=== PATIENT | female | born 1945 | race American Indian/Alaskan Native ===

== ENCOUNTER 2024-10-20 19:48 | Emergency (ER) | payer MEDICARE, MEDICAID, SELFPAY ==
[2024-10-20 19:53] VITALS: PULSE 97; O2SAT 97
[2024-10-20 19:54] VITALS: BP 134/77; PULSE 95; RESP 16; TEMP 36.7; O2SAT 97; BMI 25.3
--- NOTE | 2024-10-20 19:55 | PD.EDFALL ---
ED Fall Injury RME/HPI General Chief Complaint: Fall Stated Complaint: FALL Time Seen by Provider: 10/20/24 19:56 Arrival date/time: 10/20/24 19:48 RME / HPI RME / HPI Narrative: Dr. Dupont?s Main ED Evaluation: 79yo female with a history of DM, HTN, HLD BIBA from home presents to the ED for a chief complaint of a ground-level fall. Patient states she was washing metal dish plates when she stepped too far to the right and into a hole, reporting she fell forward and hit her face on the ground. She denies any loss of consciousness. Patient denies being on blood thinners. Patient denies any neck pain, numbness, tingling, chest pain, abdominal pain, back pain, extremity pain, blurry vision or any other associated symptoms. Related Data Home Medications ?Medication ?Instructions ?Recorded ?Confirmed lisinopril 2.5 mg tablet 2.5 mg PO QDAY 04/24/19 06/26/22 aspirin 81 mg tablet,delayed 81 mg PO QDAY 08/01/21 06/26/22 release insulin degludec 200 unit/mL (3 20 unit subcut QDAY 08/01/21 06/26/22 mL) subcutaneous pen (Tresiba FlexTouch U-200 insulin) atorvastatin 10 mg tablet 10 mg PO QDAY 06/26/22 06/26/22 hydroxyzine HCl 25 mg tablet 25 mg PO BIDPRN PRN Insomnia 06/26/22 06/26/22 travoprost 0.004 % eye drops 1 drp ophthalmic (eye) QDAY 06/26/22 06/26/22 Previous Rx's ?Medication ?Instructions ?Recorded ibuprofen 600 mg tablet 600 mg PO Q8H PRN pain #30 tabs 08/01/21 acetaminophen 500 mg capsule 1,000 mg (2 x 500 mg) PO Q6H PRN 10/20/24 fever or pain #30 caps Allergies Allergy/AdvReac Type Severity Reaction Status Date / Time oxycodone Allergy Severe HIVE Verified 06/26/22 08:12 Review of Systems Review of Systems Systems Reviewed: All systems reviewed, normal except as documented Past Medical History Past Medical History NEUROLOGIC: Negative Neurological Disorders or Seizures CARDIAC: Positive Cardiac Disorders, Peripheral Vascular Disease, Hypercholesterolemia and Hypertension; Negative Congestive Heart Failure RESPIRATORY: Negative Chronic Obstructive Pulmonary Disease (COPD) GASTROINTESTINAL: Negative Gastrointestinal Disorders GENITOURINARY: Negative Genitourinary Disorders or Renal Disease REPRODUCTIVE: Positive Breast Cancer (Left) MUSCULOSKELETAL: Positive Musculoskeletal Disorders and Arthritis ENT: Positive Cataracts (Bilateral) ENDOCRINE: Positive Endocrine Disorders and Diabetes Mellitus Type 2; Negative Diabetes Mellitus Type 1 HEMATOLOGIC: Negative Anemia or Clotting Problems OTHER HISTORY: Positive Cancer and Breast Cancer (Left); Negative Hospitalization, Falls, Blood Transfusions, Anesthesia Reactions, Chemotherapy or Radiation Therapy Surgical History SURGICAL: Positive Vascular Surgery (Left lower extremity), Mastectomy (Left), Hysterectomy and Tubal Ligation Social History SMOKING STATUS: Never smoker SUBSTANCE USE: does not use 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 HEENT: Normocephalic, large hematoma to the left side of the forehead without any open wounds; pupils equal, round, reactive to light; EOMI; right amblyopia; mucous membranes pink, moist; oropharynx clear NECK: Supple LUNGS: CTABL; no wheezes, no rales, no rhonchi HEART: Regular rate, regular rhythm; normal S1, S2; no murmurs ABDOMEN: non distended; normal BS; soft, no tenderness, no guarding, no rebound; no masses, no organomegaly, no hernia BACK: no CVA tenderness EXTREMITIES: atraumatic; no edema NEUROLOGIC: awake; alert and oriented x4; cranial nerves II-XII grossly intact; no focal sensory or motor deficits PSYCHIATRIC: appropriate mood and affect SKIN: warm, dry, normal color; no rashes Course Quality Measures none Orders Category Date Time Status Miscellaneous Nursing Order NOW Care 10/20/24 20:[address] cervical spine wo con Stat Exams 10/20/24 20:[address] facial bones wo con Stat Exams 10/20/24 20:[address] head/brain wo con Stat Exams 10/20/24 20:10 Completed Acetaminophen Tab [Tylenol ES Tab] Med 10/20/24 20:10 Discontinued 1,000 mg PO X1 ONE Vital Signs Vital signs: Vital Signs Temperature 98.1 F 10/20/24 19:54 Pulse Rate 95 10/20/24 19:54 Respiratory Rate 16 10/20/24 19:54 Blood Pressure 134/77 H 10/20/24 19:54 Pulse Oximetry (%) 97 10/20/24 19:54 Oxygen Delivery Method Room Air 10/20/24 19:54 Fall MDM Narrative MDM Narrative:: Scribe Attestation: 10/20/24 - I, Aimee Mccullough am scribing for and in the presence of Dr. Dupont. Hard C-Collar was placed. 2133: CTs are unremarkable. C-collar cleared. Patient is stable to be discharged home. Patient data External records reviewed:: [facility] previous records (Per chart review, patient was seen here on 12/14/21 for chest pain.) Clinical information provided by:: patient Social determinants that could affect healthcare access:: none Patient has the following chronic illnesses:: DM, HTN, HLD How is presenting disease/condition affected by chronic disease/condition?: uneffected by Evaluation data The following diagnostics were reviewed and interpreted by me:: radiology exam(s) Lab and/or radiology exams considered but not ordered:: none Interpretation Summary: [facility] Signed Patient: TARUN CHAVEZ. Record#: [id number] Birthdate: 1945 Age/Sex: 79 / F Location: [facility] Attending Dr: Ordering Physician: Sergio Dupont MD Date of Service: 10/20/24 Procedure(s): CT head/brain wo con Accession Number(s): [id number] cc: Herbert Giles MD; ABE SALDAÑA; Sergio Dupont MD~ Examination: CT brain head without contrast. 2-D sagittal coronal reconstructions Date and time of exam:October 20, 2024 2049 hours INDICATIONS: Patient fell today with injury to the head, head pain CTDI: vol (mGy):47.6 DLP: (mGycm):977 Technique: Multiple CT axial sections of the brain have been obtained, 5 mm slice thickness. Contrast has not been administered. 2-D sagittal, coronal reconstructions have been obtained Low dose protocols were performed. One or more of the following dose reduction techniques were used; automated exposure control, adjustment of the mA and/or KV according to patient size, use of iterative reconstruction technique. Findings: No significant ventricular enlargement. Intra-axial or extra-axial hemorrhage density is not seen. No mass effect or midline shift Basal cisterns are not remarkable. Fourth ventricle is midline. Cranial vault intact. Left forehead soft tissue scalp swelling/hematoma Impression: Negative for acute hemorrhage, mass effect or midline shift Dictated By: Herbert Giles MD Signed By: <Electronically signed by Herbert Giles MD in OV> 10/20/242119 [facility] Signed Patient: TARUN CHAVEZ [facility]. Record#: [id number] Birthdate: 1945 Age/Sex: 79 / F Location: [facility] Attending Dr: Ordering Physician: Sergio Dupont MD Date of Service: 10/20/24 Procedure(s): CT facial bones wo con Accession Number(s): [id number] cc: Herbert Giles MD; ABE SALDAÑA; Sergio Dupont MD~ Examination: CT maxillofacial, without intravenous contrast. 2-D sagittal reconstructions. 3-D reconstructions. Date and time of exam:October 20, 2024, 2048 hours INDICATIONS: Patient fell today with injury to the face, facial pain CTDI: vol (mGy):22.1 DLP: (mGycm):381 Technique: Multiple axial images of maxillofacial region, 3.0 mm slice thickness. 2-D sagittal and coronal reconstructions. 3-D reconstructions. Low dose protocols were performed. One or more of the following dose reduction techniques were used; automated exposure control, adjustment of the mA and/or KV according to patient size, use of iterative reconstruction technique. Findings: Soft tissue swelling/hematoma left forehead Frontal bone intact Orbital rims intact No nasal bone fracture. No depression zygomatic arches. Pterygoid plates maxilla and mandible are intact. IMPRESSION: No acute facial fracture Dictated By: Herbert Giles MD Signed By: <Electronically signed by Herbert Giles MD in OV> 10/20/242117 [facility] Signed Patient: TARUN CHAVEZ [facility]. Record#: [id number] Birthdate: 1945 Age/Sex: 79 / F Location: [facility] Attending Dr: Ordering Physician: Sergio Dupont MD Date of Service: 10/20/24 Procedure(s): CT cervical spine wo con Accession Number(s): [id number] cc: Herbert Giles MD; ABE SALDAÑA; Sergio Dupont MD~ Examination: CT cervical spine without contrast 2-D sagittal reconstructions 2-D coronal reconstructions 3-D reconstructions. Exam date and time:October 20, 2024, 2048 hours INDICATIONS: Patient fell today with injury to the neck, neck pain CTDI:vol (mGy) 13.7 DLP: (mGycm) 290 Technique: Multiple 2 mm axial sections of the cervical spine have been obtained. The coronal and sagittal reconstructions have been obtained. 3-D reconstructions have been obtained. Low dose protocols were performed. One or more of the following dose reduction techniques were used; automated exposure control, adjustment of the mA and/or KV according to patient size, use of iterative reconstruction technique. Findings: Axial sections demonstrate intact base of the skull. C1 exhibit satisfactory relationship to the odontoid. No acute cervical vertebral body fracture seen. Alignment posterior spinous processes satisfactory. Impression: No acute cervical fracture. Dictated By: Herbert Giles MD Signed By: <Electronically signed by Herbert Giles MD in OV> 10/20/242122 Medications / Prescriptions Medications or Prescriptions considered but not ordered:: none Medication administrations:: Medication Administration History Discontinued Medications Acetaminophen (Acetaminophen 500 Mg Tablet) 1,000 mg PO X1 ONE Stop: 10/20/24 20:11 Last Admin: 10/20/24 20:21 Dose: 1,000 mg Documented By: CB see above Consultations Consultation(s) initiated? (list below): No Diagnosis Fall Differential Diagnosis: other (skull fracture, facial fracture, ICH, cervical spine fracture) Most likely diagnosis given after review of the tests above:: see clinical impression below Admission Indicated Admission indicated?: not indicated Admission Request Was there a request for admission?: No Disposition Plan Disposition Plan: Discharge Discharge Attestation Discharge Attestation: The patient and all family members were given an opportunity to ask questions and understood the discharge instructions. Discharge instructions specifically effects, indications for sooner follow up or return to the emergency department, and the expected course of current diagnosis. Patient condition: Stable Discharge Plan Plan Patient Disposition: HOME (Self Care) Discharge Disposition comment: Stable for discharge home Patient condition on transfer: Stable Prescriptions/Referrals Prescriptions/Med Rec: New acetaminophen 500 mg capsule 1,000 mg PO Q6H PRN (Reason: fever or pain) Qty: 30 0RF No Action lisinopril 2.5 mg Tablet 2.5 mg PO QDAY aspirin 81 mg tablet,delayed release (DR/EC) 81 mg PO QDAY Patient Comments: TAKE 1 TABLET BY MOUTH EVERY DAY insulin degludec [Tresiba FlexTouch U-200] 200 unit/mL (3 mL) insulin pen 20 unit SUBCUT QDAY Patient Comments: ADMINISTER 30 UNITS UNDER THE SKIN EVERY DAY ibuprofen 600 mg tablet 600 mg PO Q8H PRN (Reason: pain) Qty: 30 0RF atorvastatin 10 mg tablet 10 mg PO QDAY Patient Comments: TAKE 1 TABLET BY MOUTH EVERY DAY travoprost 0.004 % drops 1 drp ophthalmic (eye) QDAY Patient Comments: INSTILL 1 DROP IN RIGHT EYE EVERY NIGHT AT BEDTIME AND IN THE EVENING hydroxyzine HCl 25 mg tablet 25 mg PO BIDPRN PRN (Reason: Insomnia) Patient Comments: TAKE 1 TABLET BY MOUTH TWICE DAILY NEEDED Referrals: Abe Saldaña PA-C [Primary Care Provider] - In 1 week Problem List Clinical Impression: Contusion of face Patient/Caregiver Discharge Instructions Discharge Activity: activity as tolerated Education Materials: ED Facial Contusion, ED Head Injury (Adult) Additional Instructions: Please return to the emergency department if you have any worsening or any further medical problems and we will help you. Otherwise you should follow-up with your primary care doctor within the next several days. I have called in a prescription for extra strength Tylenol at your pharmacy. Please take 2 tabs every 6 hours for pain. You will likely have a black eye tomorrow. This does not mean that you are worsening it just means that the blood from the forehead injury has settled. You should ice the area for the next couple of days at least. Print Language: Slovak Stand Alone Forms: [facility] Info., Patient Portal Info Letter
--- NOTE | 2024-10-20 20:10 | XR_ITS ---
Examination: CT maxillofacial, without intravenous contrast. 2-D sagittal reconstructions. 3-D reconstructions. Date and time of exam:October 20, 2024, 2048 hours INDICATIONS: Patient fell today with injury to the face, facial pain CTDI: vol (mGy):22.1 DLP: (mGycm):381 Technique: Multiple axial images of maxillofacial region, 3.0 mm slice thickness. 2-D sagittal and coronal reconstructions. 3-D reconstructions. Low dose protocols were performed. One or more of the following dose reduction techniques were used; automated exposure control, adjustment of the mA and/or KV according to patient size, use of iterative reconstruction technique. Findings: Soft tissue swelling/hematoma left forehead Frontal bone intact Orbital rims intact No nasal bone fracture. No depression zygomatic arches. Pterygoid plates maxilla and mandible are intact. IMPRESSION: No acute facial fracture
--- NOTE | 2024-10-20 20:10 | XR_ITS ---
Examination: CT brain head without contrast. 2-D sagittal coronal reconstructions Date and time of exam:October 20, 2024 2049 hours INDICATIONS: Patient fell today with injury to the head, head pain CTDI: vol (mGy):47.6 DLP: (mGycm):977 Technique: Multiple CT axial sections of the brain have been obtained, 5 mm slice thickness. Contrast has not been administered. 2-D sagittal, coronal reconstructions have been obtained Low dose protocols were performed. One or more of the following dose reduction techniques were used; automated exposure control, adjustment of the mA and/or KV according to patient size, use of iterative reconstruction technique. Findings: No significant ventricular enlargement. Intra-axial or extra-axial hemorrhage density is not seen. No mass effect or midline shift Basal cisterns are not remarkable. Fourth ventricle is midline. Cranial vault intact. Left forehead soft tissue scalp swelling/hematoma Impression: Negative for acute hemorrhage, mass effect or midline shift
--- NOTE | 2024-10-20 20:10 | XR_ITS ---
Examination: CT cervical spine without contrast 2-D sagittal reconstructions 2-D coronal reconstructions 3-D reconstructions. Exam date and time:October 20, 2024, 2048 hours INDICATIONS: Patient fell today with injury to the neck, neck pain CTDI:vol (mGy) 13.7 DLP: (mGycm) 290 Technique: Multiple 2 mm axial sections of the cervical spine have been obtained. The coronal and sagittal reconstructions have been obtained. 3-D reconstructions have been obtained. Low dose protocols were performed. One or more of the following dose reduction techniques were used; automated exposure control, adjustment of the mA and/or KV according to patient size, use of iterative reconstruction technique. Findings: Axial sections demonstrate intact base of the skull. C1 exhibit satisfactory relationship to the odontoid. No acute cervical vertebral body fracture seen. Alignment posterior spinous processes satisfactory. Impression: No acute cervical fracture.
[2024-10-20] MEDS: ACETAMINOPHEN 500 MG TABLET 1000 MG PO (20:21)
[2024-10-20 21:55] VITALS: BP 138/71; PULSE 81; RESP 19; O2SAT 100
== END 2024-10-20 21:56 | disposition home or self-care (01) ==
PROVIDERS: Emergency Provider Emergency Medicine; PCP Physician Assistant
DX: S00.83XA Contusion of other part of head, initial encounter (principal); W18.30XA Fall on same level, unspecified, initial encounter; E11.9 Type 2 diabetes mellitus without complications; E78.5 Hyperlipidemia, unspecified; I10 Essential (primary) hypertension
CPT/HCPCS: 70450; 70486; 72125; 99284; A9270

== ENCOUNTER 2024-11-01 16:51 | Emergency (ER) | payer MEDICARE, MEDICAID, SELFPAY ==
[2024-11-01 16:53] VITALS: BMI 22.8
[2024-11-01 17:59] VITALS: BP 152/81; PULSE 76; RESP 16; TEMP 36.6; O2SAT 98
--- NOTE | 2024-11-01 18:01 | PD.EDWEAK ---
ED Weakness RME/HPI General Chief complaint: Weakness Stated complaint: I HAVE HIGH SUGAR AND FEEL WEAK Time Seen by Provider: 11/01/24 18:03 Arrival date/time: 11/01/24 16:51 RME / HPI RME / HPI Narrative: 79-year-old female patient came in for evaluation regarding possible elevated blood sugar. Patient told me that he is homeless just recently and now complaining of possible high blood sugar. Has been having generalized body weakness and feels dizzy since this morning. Patient is not taking her diabetes medication for more than a month due to being homeless. Denies any vomiting denies any other abdominal pain denies any chest pain denies any fever denies any cough . Related Data Home Medications ?Medication ?Instructions ?Recorded ?Confirmed lisinopril 2.5 mg tablet 2.5 mg PO QDAY 04/24/19 06/26/22 aspirin 81 mg tablet,delayed 81 mg PO QDAY 08/01/21 06/26/22 release insulin degludec 200 unit/mL (3 20 unit subcut QDAY 08/01/21 06/26/22 mL) subcutaneous pen (Tresiba FlexTouch U-200 insulin) atorvastatin 10 mg tablet 10 mg PO QDAY 06/26/22 06/26/22 hydroxyzine HCl 25 mg tablet 25 mg PO BIDPRN PRN Insomnia 06/26/22 06/26/22 travoprost 0.004 % eye drops 1 drp ophthalmic (eye) QDAY 06/26/22 06/26/22 Previous Rx's ?Medication ?Instructions ?Recorded ibuprofen 600 mg tablet 600 mg PO Q8H PRN pain #30 tabs 08/01/21 acetaminophen 500 mg capsule 1,000 mg (2 x 500 mg) PO Q6H PRN 10/20/24 fever or pain #30 caps cefuroxime axetil 500 mg tablet 500 mg PO BID #14 tabs 11/01/24 Allergies Allergy/AdvReac Type Severity Reaction Status Date / Time oxycodone Allergy Severe HIVE Verified 11/01/24 16:54 Review of Systems Review of Systems Narrative Review of Systems: Review of system reviewed and within normal limits except mentioned in HPI ED Exam Narrative Physical exam: VITAL SIGNS: Reviewed. GENERAL APPEARANCE: Alert and interactive, follows commands, no acute distress, HEAD AND FACE: Non-traumatic. ENT: PERRL, pink conjunctivitis, eyelid no trauma, Mucous membrane moist. NECK: Supple, nontender, no nuchal rigidity. CHEST: No tenderness, no crepitus, no paradoxical movement, no retractions. LUNGS: Clear, well ventilated, symmetric, no rales, no wheezing, no ronchi, no stridor, good breath sounds bilaterally. HEART: Regular rate, regular rhythm, no murmur, no gallops. ABDOMEN: Soft, positive bowel sounds, nondistended, no guarding, nontender, no rebound, no masses, RECTAL: Deferred. GENITAL: Deferred. NEUROLOGICAL: Gross motor function intact sensory function intact, Appropriate for age. MUSCULOSKELETAL: low back nontender, full range of motion. EXTREMITIES: Nontender, full range of motion. SKIN: Color pink, dry, no rash, no lacerations, no abrasions, no contusions. LYMPHATICS: Deferred. Course Quality Measures none Orders Category Date Time Status EKG (ED ONLY) *Do not use* NOW Care 11/01/24 18:15 Completed IV [Insert IV] STAT Care 11/01/24 20:25 Active EKG (ED Only) Stat Exams 11/01/24 18:15 Draft XR chest 1V Stat Exams 11/01/24 18:03 Completed Acetone [Beta Hydroxybutyrate] Stat Lab 11/01/24 18:39 Completed CBC Stat Lab 11/01/24 18:39 Completed Comprehensive Metabolic Panel Stat Lab 11/01/24 18:39 Completed Partial Thromboplastin Time Stat Lab 11/01/24 18:39 Completed Urinalysis, C/S if Indicated Stat Lab 11/01/24 18:33 Completed Insulin Regular Med 11/01/24 20:08 Discontinued 6 unit IV X1 ONE Potassium Chloride [K-Dur] Med 11/01/24 20:10 Discontinued 40 meq PO X1 ONE Sodium Chloride 0.9% 1000 ml [Ns] 1,000 ml Med 11/01/24 20:09 Discontinued IV 999 mls/hr cefTRIAXone/D5w 1gm IV premix [Rocephin/D5w 1gm IV Med 11/01/24 20:09 Discontinued premix] 1 gm in 50 ml IV X1 Vital Signs Vital signs: Vital Signs Temperature 97.8 F 11/01/24 17:59 Pulse Rate 76 11/01/24 17:59 Respiratory Rate 16 11/01/24 17:59 Blood Pressure 152/81 H 06/14/25 17:59 Pulse Oximetry (%) 98 11/01/24 17:59 Oxygen Delivery Method Room Air 11/01/24 17:59 Weakness [facility] Narrative [facility] Narrative:: 79-year-old female patient came in for evaluation regarding possible elevated blood sugar. Patient told me that he is homeless just recently and now complaining of possible high blood sugar. Has been having generalized body weakness and feels dizzy since this morning. Patient is not taking her diabetes medication for more than a month due to being homeless. Denies any vomiting denies any other abdominal pain denies any chest pain denies any fever denies any cough . EKG as interpreted by me showed normal sinus rhythm, ventricular rate of 72 bpm, no ST segment elevation or depression noted. Patient's laboratory workup is significant for UTI, blood sugar was noted to be 431 with no sign of diabetic ketoacidosis. Chest x-ray came back unremarkable. Patient was given IV fluids, IV insulin, and potassium replacement was also given depression IV. Prior to discharge patient's sugar was noted to be 321 patient told me that he is going to call her PCP tomorrow for insulin. Patient data External records reviewed:: None Clinical information provided by:: patient Social determinants that could affect healthcare access:: none Patient has the following chronic illnesses:: Diabetes mellitus How is presenting disease/condition affected by chronic disease/condition?: exacerbated by Evaluation data The following diagnostics were reviewed and interpreted by me:: lab results, radiology exam(s) and EKG tracing(s) Lab and/or radiology exams considered but not ordered:: None Interpretation Summary: See results [facility] Medications / Prescriptions Medications or Prescriptions considered but not ordered:: None Medication administrations:: Medication Administration History Discontinued Medications Ceftriaxone Sodium/Dextrose (Rocephin/D5w 1gm Iv Premix) 1 gm in 50 mls @ 100 mls/hr IV X1 ONE Stop: 11/01/24 20:38 Last Admin: 11/01/24 20:29 Dose: 100 mls/hr Documented By: ANYI Sodium Chloride (Ns) 1,000 mls @ 999 mls/hr IV .Q1H1M ONE Stop: 11/01/24 21:09 Last Admin: 11/01/24 20:30 Dose: 999 mls/hr Documented By: ANYI Insulin Human Regular (Insulin Hum Regular 1 Unit/0.01 Ml (Per Unit)) 6 unit 0.1 unit/kg (6 unit) IV X1 ONE Stop: 11/01/24 20:09 Last Admin: 11/01/24 20:29 Dose: 6 unit Documented By: ANYI Co-signed By: KIMBERLY Potassium Chloride (Potassium Chloride 20 Meq Tabcr) 40 meq PO X1 ONE Stop: 11/01/24 20:11 Last Admin: 11/01/24 20:28 Dose: 40 meq Documented By: ANIY Insulin, potassium,Ceftriaxone IV,IV fluids for hydration Consultations Consultation(s) initiated? (list below): No Diagnosis Weakness Differential Diagnosis: dehydration and other (Hyperglycemia, diabetes mellitus, UTI) Most likely diagnosis given after review of the tests above:: Hyperglycemia, UTI Admission Indicated Admission indicated?: not indicated Admission Request Was there a request for admission?: No Disposition Plan Disposition Plan: Discharge Discharge Attestation Discharge Attestation: The patient and all family members were given an opportunity to ask questions and understood the discharge instructions. Discharge instructions specifically effects, indications for sooner follow up or return to the emergency department, and the expected course of current diagnosis. Patient condition: Stable Discharge Plan Plan Patient Disposition: HOME (Self Care) Discharge Disposition comment: Stable Prescriptions/Referrals Prescriptions/Med Rec: New cefuroxime axetil 500 mg tablet 500 mg PO BID Qty: 14 0RF No Action lisinopril 2.5 mg Tablet 2.5 mg PO QDAY aspirin 81 mg tablet,delayed release (DR/EC) 81 mg PO QDAY Patient Comments: TAKE 1 TABLET BY MOUTH EVERY DAY insulin degludec [Tresiba FlexTouch U-200] 200 unit/mL (3 mL) insulin pen 20 unit SUBCUT QDAY Patient Comments: ADMINISTER 30 UNITS UNDER THE SKIN EVERY DAY ibuprofen 600 mg tablet 600 mg PO Q8H PRN (Reason: pain) Qty: 30 0RF atorvastatin 10 mg tablet 10 mg PO QDAY Patient Comments: TAKE 1 TABLET BY MOUTH EVERY DAY travoprost 0.004 % drops 1 drp ophthalmic (eye) QDAY Patient Comments: INSTILL 1 DROP IN RIGHT EYE EVERY NIGHT AT BEDTIME AND IN THE EVENING hydroxyzine HCl 25 mg tablet 25 mg PO BIDPRN PRN (Reason: Insomnia) Patient Comments: TAKE 1 TABLET BY MOUTH TWICE DAILY NEEDED acetaminophen 500 mg capsule 1,000 mg PO Q6H PRN (Reason: fever or pain) Qty: 30 0RF Referrals: Abe Cruz PA-C [Primary Care Provider] - In 1 week Problem List Clinical Impression: UTI (urinary tract infection), Hyperglycemia due to type 2 diabetes mellitus Patient/Caregiver Discharge Instructions Discharge Activity: activity as tolerated Education Materials: How Diabetes Can Affect ... Additional Instructions: Thank you for the opportunity for serving you today. You are stable for discharged . You are advised to: Follow-up with your PCP in 1 to 2 days Return to ED for worsening of symptoms Increase oral fluids Take medication as prescribed Talk to your PCP in the morning regarding your insulin Print Language: Finnish Stand Alone Forms: [employer] Info., Patient Portal Info Letter
--- NOTE | 2024-11-01 18:03 | XR_ITS ---
Examination: PA chest single view TECHNIQUE: Upright PA chest single view Date and time: 11/01/2024 1821 hours Comparison July 16, 2023 INDICATIONS: Dizziness generalized body weakness today FINDINGS: Normal heart size. Lungs are clear. The osseous structures are intact IMPRESSION: No active disease
--- NOTE | 2024-11-01 18:15 | EKG_ITS ---
[facility] Test Date: 2024-11-01 Pat Name: TARUN CHAVEZ Department: Room: - Gender: Female Security Systems Engineer: : [id number] Requested By: Driss Oro Order Number: [id number] Reading MD: Driss Oro Measurements Intervals [place] Rate: 72 P: 24 ND: 137 QRS: -45 QRSD: 134 T: 47 QT: 406 QTc: 445 Interpretive Statements SINUS RHYTHM INDETERMINATE AXIS RIGHT BUNDLE BRANCH BLOCK [120+ ms QRS DURATION, UPRIGHT V1, 40+ ms S IN I/aVL/V4/V5/V6] No previous ECG available for comparison /[id number]/[email or web address]/[id number]
[2024-11-01 18:47] LABS: Collection Type, Urine Clean Catch
[2024-11-01 18:56] LABS: Bacteria,Urine 2+; Bilirubin,Urine Negative (Negative); Blood,Urine Negative (Negative); Clarity,Urine Clear (Clear/Hazy); Color,Urine Lt-Yellow (Lt Yel-Yel); Culture Indicated,Urine Contaminated; Glucose, Urine 4+ (Negative); Ketones,Urine Negative (Negative); Leukocyte Esterase,Urine Positive (Negative); Nitrite,Urine Positive (Negative); PH,Urine 5.5 (5.0-7.0); Protein,Urine Trace (Neg - Trace); RBC,Urine 2 /hpf (0-3); Specific Gravity,Urine 1.033 (1.001-1.035); Squamous Epithelial Cell,Urine 18 /hpf (0-5); Urobilinogen,Urine Negative mg/dL (0.0-1.0); WBC,Urine 62 /hpf (0-5)
[2024-11-01 18:59] LABS: Beta Hydroxybutyrate 0.2 mmol/L (<0.6)
[2024-11-01 19:00] LABS: Basophils % (Auto) 0 % (0-2.5); Eosinophils # (Auto) 0.1 Thou/mm3 (0.0-0.5); Eosinophils % (Auto) 1 % (0-10); Hemoglobin 14.5 g/dL (12.0-16.0); Immature Granulocytes % (Auto) 0 % (0-0); Immature Granulocytes Auto 0.01 Thou/mm3 (0.00-0.00); Lymphocytes # (Auto) 1.9 Thou/mm3 (1.0-4.8); Lymphocytes % (Auto) 35 % (10-50); Mean Corpuscular HGB Conc 36.3 g/dl (31.0-37.0); Mean Corpuscular Hemoglobin 34.5 pg (25.0-35.0); Mean Corpuscular Volume 95 fL (80-100); Monocytes # (Auto) 0.4 Thou/mm3 (0.0-0.8); Monocytes % (Auto) 8 % (0-12); Neutrophils % (Auto) 56 % (37-80); Nucleated Red Blood Cell % 0 /100 WBC (0); Platelet Count 234 Thou/mm3 (140-440); White Blood Count 5.4 Thou/mm3 (3.6-11.0)
[2024-11-01 19:15] LABS: Partial Thromboplastin Time 31.9 Seconds (22.0-36.0)
[2024-11-01 19:42] LABS: Alanine Aminotransferase 36 U/L (10-49); Albumin, Serum 4.3 gm/dL (3.4-4.8); Albumin/Globulin Ratio 1.2 (1.2-2.2); Alkaline Phosphatase 90 U/L (46-116); Anion Gap 8 (7-16); Aspartate Amino Transferase 32 U/L (0-34); BUN/Creatinine Ratio 15 Ratio (12-20); Bilirubin,Total 0.7 mg/dL (0.3-1.2); Blood Urea Nitrogen 15 mg/dL (9-23); Calcium 9.8 mg/dL (8.3-10.6); Calcium (Corrected) 9.8 mg/dL (8.5-10.1); Carbon Dioxide 28.1 mMol/L (20.0-31.0); Chloride 99 mMol/L (98-107); Estimated Creatinine Clearance 38.7 mL/min (>60); Globulin 3.5 gm/dL (2.3-3.5); Osmolality,Calculated 288 (275-295); Potassium 4.2 mMol/L (3.4-5.1); Sodium 135 mMol/L (136-145); Total Protein 7.8 gm/dL (5.7-8.2); eGFR 57 See Note
[2024-11-01 19:43] LABS: Glucose 431 mg/dL (74-106)
[2024-11-01] MEDS: POTASSIUM CHLORIDE 20 mEq TABCR 40 MEQ PO (20:28)
[2024-11-01] MEDS: cefTRIAXone/D5w 1gm IV premix 1 GM/50 ML BAG IV (20:29)
[2024-11-01] MEDS: INSULIN HUM REGULAR 1 UNIT/0.01 ML (PER UNIT) 6 UNIT IV (20:29)
[2024-11-01] MEDS: SODIUM CHLORIDE 0.9% 1000 ML 1,000 ML 999 ML IV (20:30)
[2024-11-01 22:19] VITALS: BP 136/72; PULSE 76; RESP 16; TEMP 36.8; O2SAT 98
== END 2024-11-01 22:20 | disposition home or self-care (01) ==
PROVIDERS: Nurse Practitioner Family; Emergency Provider Emergency Medicine; PCP Physician Assistant
DX: N39.0 Urinary tract infection, site not specified (principal); E11.65 Type 2 diabetes mellitus with hyperglycemia; Z59.00 Homelessness unspecified; I45.10 Unspecified right bundle-branch block; R42 Dizziness and giddiness
CPT/HCPCS: 36415; 71045; 80053; 81001; 82010; 85025; 85730; 93005; 96361; 96365; 99284; J0696; J1815; J7030; A9270